=== PATIENT | female | born 1955 | race Caucasian/White ===

== ENCOUNTER → 2019-08-23 | Outpatient (CLI) | payer MEDICARE, OTHER ==
[~2019-08-23] MED LIST: ALBU2.5V5; ALBU90OI; ATOR80; Aspirin EC81 MG PO
[2019-08-25 18:06] LABS: HPV 16 Positive (Negative); HPV 18 Negative (Negative); HPV OTHER HR TYPES Negative (Negative)
== END | disposition home or self-care (01) ==
LOC: LAB 18:09 → LAB SHORT 18:09
PROVIDERS: Nurse Practitioner Family
DX: Z01.419 Encounter for gynecological examination (general) (routine) without abnormal findings (principal)
CPT/HCPCS: 87624; 87625; G0145

== ENCOUNTER → 2019-10-03 | Outpatient (CLI) | payer MEDICARE, OTHER | END | disposition home or self-care (01) | LOC: PLD 08:07 → LAB SHORT 08:07 | DX: R87.810 Cervical high risk human papillomavirus (HPV) DNA test positive (principal); R87.613 High grade squamous intraepithelial lesion on cytologic smear of cervix (HGSIL) | CPT/HCPCS: 88305 ==

== ENCOUNTER → 2019-10-31 | Outpatient (CLI) | payer MEDICARE, OTHER | END | disposition home or self-care (01) | LOC: LAB SHORT 08:03 → PLD 08:03 | DX: D06.0 Carcinoma in situ of endocervix (principal); D06.1 Carcinoma in situ of exocervix | CPT/HCPCS: 88307 ==

== ENCOUNTER 2021-12-20 03:07 | Inpatient (IN) | payer MEDICARE, OTHER ==
[~2021-12-20] VITALS: Ht 154.9 cm; Wt 79.5 kg
[~2021-12-20 03:07] MED LIST changes: -ATOR80; +ATOR80 PO
[2021-12-20 03:31] LABS: BASOPHILS ABSOLUTE AUTO 0.05 K/mm3 (0.00-0.23); BASOPHILS PERCENT AUTO 1 % (0-2); EOSINOPHILS ABSOLUTE AUTO 0.53 K/mm3 (0.00-0.68); EOSINOPHILS PERCENT AUTO 7 % (0-6); Hematocrit 46.4 % (33.0-51.0); Hemoglobin 14.6 g/dL (11.5-16.0); IMMATURE GRAN ABSOLUTE AUTO 0.03 K/mm3 (0.00-0.10); IMMATURE GRAN PERCENT AUTO 0 % (0-1); LYMPHOCYTES ABSOLUTE AUTO 2.75 K/mm3 (0.84-5.20); LYMPHOCYTES PERCENT AUTO 34 % (21-46); MONOCYTES ABSOLUTE AUTO 0.41 K/mm3 (0.16-1.47); MONOCYTES PERCENT AUTO 5 % (4-13); Mean Corpuscular HGB 27.7 pg (26.0-34.0); Mean Corpuscular HGB Conc 31.5 g/dL (31.5-36.5); Mean Corpuscular Volume 88 fL (80-100); Mean Platelet Volume 10.9 fL (9.1-12.4); NEUTROPHILS ABSOLUTE AUTO 4.41 K/mm3 (1.96-9.15); NEUTROPHILS PERCENT AUTO 54 % (41-73); Platelet Count 234 K/mm3 (150-400); RDW Coefficient Variation 14.6 % (11.7-14.2); RDW Standard Deviation 46.8 fL (35.1-46.3); Red Blood Cell Count 5.27 M/mm3 (3.80-5.20); White Blood Cell Count 8.18 K/mm3 (4.00-11.30)
[2021-12-20 03:48] LABS: Albumin, Blood 3.5 g/dL (3.4-5.0); Bilirubin, Total 0.2 mg/dL (0.1-1.0); Bun/Creatinine Ratio 21.2 (12.0-20.0); Creatinine, Blood 0.94 mg/dL (0.40-1.00); Globulin, Blood 3.4 g/dL (2.2-4.0); Potassium, Blood 4.4 mmol/L (3.5-5.5); Total Protein, Blood 6.9 g/dL (6.4-8.2)
[2021-12-20 04:54] LABS: Influenza A, PCR NEGATIVE (NEGATIVE); Influenza B, PCR NEGATIVE (NEGATIVE); Resp Syncytial Virus, PCR NEGATIVE (NEGATIVE)
[2021-12-20 04:55] LABS: SARS-Cov-2 (COVID-19) PCR, MMC POSITIVE (NEGATIVE)
[2021-12-20] MEDS ORDERED: Ventolin/Prove6.7 GM INH (06:06)
[2021-12-20] MEDS ORDERED: VITAMIN D31000 UNI1 PO (07:40)
[2021-12-20] MEDS ORDERED: Crestor40 MG (07:41)
[2021-12-20 12:11] LABS: CPK Creatine Kinase 175 U/L (26-193)
--- NOTE | 2021-12-20 17:22 | NUR ---
SHIFT SUMMARY PATIENT ADMITTED FROM ER THIS AM. COPD EXACERBATION, POSITIVE FOR COVID, AND ELEVATED TROPONINS. A&OX4. PATIENT ON 3L O2 VIA NC. ATTEMPTED TO AMBULATE TO RESTROOM AND BECAME VERY SOB. PATIENT TOLERATING SBA TO BSC. RECEIVING BREATHING TX FROM RT. ON TELE RUNNING SINUS 95. MEDICATED FOR COUGH PER NOV. WILL CONTINUE TO MONITOR.
[2021-12-20 21:02] LABS: Creatine Kinase MB 21.6 ng/mL (0.0-3.6); Creatine Kinase MB Index 6.5 (0.0-4.0)
--- NOTE | 2021-12-20 23:09 | NUR ---
PHYSICIAN COMMUNICATION CONTACTED CUSTOMER SUPPORT TECHNICIAN PHYSICIAN TO NOTIFY HER THAT THE PATIENT WAS EXPERIENCING 7/10 SUBSTERNAL CHEST PAIN RADIATING TO BACK, INCREASED SHORTNESS OF BREATH NOT HELPED WITH BREATHING TREATMENTS, NAUSEA, AND SWEATING. REMINDED PHYSICIAN OF MOST RECENT TROPONIN LEVEL. DR RIGGS SAID SHE WOULD PUT IN ORDERS FOR EKG, MEDICATION, AND TRANFER TO ANOTHER UNIT.
[2021-12-20 23:49] LABS: International Normalized Ratio 1.11; Prothrombin Time Results 11.6 Sec (9.7-11.5)
--- NOTE | 2021-12-21 01:09 | NUR ---
ASSUMED PT CARE FROM MORIAH HERNANDEZ ON MEDICAL CARE FLOOR. PT TRANSFERED TO UNIT AT 0025 VIA BED. ON 6LPM VIA NC. STATES CHEST PAIN IS 1 AND BACK PAIN IS 2 AT THIS TIME, NO INCREASED SOB LIKE SHE WAS HAVING PREVIOUSLY. ABLE TO WEAN NC TO 3LPM WITH O2 SATS AT 95%. PT'S TELE READS HR IN SINUS TACH IN LOW 100'S. PT HAS INTERMITENT COUGHING FITS REPORTED FROM MORIAH HERNANDEZ. TOLERATES NEW IV BEING PLACED IN LEFT FORARM. HEPRIN GTT RUNNING ORDERED, DOUBLED CHECKED WHEN PT TRANSFERED. DENIES NEEDS AT THIS TIME. ORIENTED TO NEW ROOM AND CALL LIGHT. OVERBED TABLE IN REACH.
--- NOTE | 2021-12-21 03:16 | NUR ---
PT HAS HAD NO COMPLAINTS OF CHEST PAIN OR SOB SINCE TRANSFER FROM [facility]. HR REMAINS SINUS RHYTHM AT THIS TIME. PLETH AT 100% ON 3LPM. RESTING IN BED WITH EYES CLOSED, APPEARS TO BE SLEEPING.
--- NOTE | 2021-12-21 04:30 | NUR ---
PT COMPLAINING OF CHEST PAIN 6/10 UNDER LEFT BREAST, PT ABLE TO POINT DIRECTLY TO SITE. VITAL SIGNS WNL. PT DOES NOT APPEAR IN DISTRESS. NITRO X 1 GIVEN AND MORPHINE 1 MG. AFTER 5 MINUTES PT STATES PAIN IS ALMOST GONE. RESPIRATORY THERAPY CALLED FOR NEB TREATMENT DUE TO PT COMPLAING OF MILD SOB. VITAL SIGNS REMAIN WNL. WILL MONITOR. SAFETY MEASURES IN PLACE.
--- NOTE | 2021-12-21 05:55 | NUR ---
PT NOW RESTING IN BED, APPEARS COMFORTABLE. NO FURTHER COMPLAINTS OF CHEST PAIN AT THIS TIME. CALL LIGHT IN REACH.
[2021-12-21 06:24] LABS: BASOPHILS ABSOLUTE AUTO 0.02 K/mm3 (0.00-0.23); BASOPHILS PERCENT AUTO 0 % (0-2); EOSINOPHILS PERCENT AUTO 0 % (0-6); Hematocrit 46.6 % (33.0-51.0); Hemoglobin 14.6 g/dL (11.5-16.0); IMMATURE GRAN ABSOLUTE AUTO 0.06 K/mm3 (0.00-0.10); IMMATURE GRAN PERCENT AUTO 1 % (0-1); LYMPHOCYTES PERCENT AUTO 6 % (21-46); MONOCYTES ABSOLUTE AUTO 0.37 K/mm3 (0.16-1.47); MONOCYTES PERCENT AUTO 3 % (4-13); Mean Corpuscular HGB 27.6 pg (26.0-34.0); Mean Corpuscular HGB Conc 31.3 g/dL (31.5-36.5); Mean Corpuscular Volume 88 fL (80-100); NEUTROPHILS ABSOLUTE AUTO 11.57 K/mm3 (1.96-9.15); NEUTROPHILS PERCENT AUTO 91 % (41-73); Platelet Count 235 K/mm3 (150-400); RDW Coefficient Variation 14.9 % (11.7-14.2); RDW Standard Deviation 47.8 fL (35.1-46.3); Red Blood Cell Count 5.29 M/mm3 (3.80-5.20); White Blood Cell Count 12.72 K/mm3 (4.00-11.30)
[2021-12-21 06:48] LABS: Alanine Aminotransfer (ALT/SGP 32 U/L (12-78); Albumin, Blood 3.5 g/dL (3.4-5.0); Alk Phos 80 U/L (50-136); Anion Gap 4 mmol/L (6-16); Aspartate Aminotrans (AST/SGOT 38 U/L (12-37); Bilirubin, Total 0.3 mg/dL (0.1-1.0); Blood Urea Nitrogen 26 mg/dL (8-24); Bun/Creatinine Ratio 28.2 (12.0-20.0); CO2, Blood 32 mmol/L (21-32); Calcium, Blood 9.2 mg/dL (8.5-10.1); Chloride, Blood 106 mmol/L (98-108); Creatinine, Blood 0.92 mg/dL (0.40-1.00); Globulin, Blood 3.5 g/dL (2.2-4.0); Glomerular Filtration Rate >60 (60-); Glucose, Blood 184 mg/dL (70-99); Potassium, Blood 5.4 mmol/L (3.5-5.5); Sodium, Blood 142 mmol/L (136-145)
--- NOTE | 2021-12-21 10:22 | NUR ---
UPDATE PT CALLED TO REPORT CHEST PAIN, 8/10 MID STERNAL, RADIATING TO LEFT SHOULDER. PT ALSO REPORTED SHORTNESS OF BREATH. 1 DOSE OF SUBLINGUAL NITRO ADMINISTERED, THIS RESOLVED THE CHEST PAIN AND IMPROVED SHORTNESS OF BREATH. BP 99/74, P70, SPO2 97%, RR 22. PT REPORTED MILD LIGHTHEADEDNESS/DIZZINESS AFTER NITRO TREATMENT. CURRENTLY ON 3L NC, NO CHANGES MADE.
--- NOTE | 2021-12-21 15:28 | NUR ---
UPDATE PT HAD AN EPISODE OF CHEST PAIN, 8/10 RADIATING TO LEFT AND RIGHT SHOULDER. PT WAS EXPERIENCING SHORTNESS OF BREATH, SPO2 96% AT 3L NC. 2 MG MORPHINE IV ADMINISTERED AND RESOLVED PAIN TO 4/10 AND IMPROVED SHORTNESS OF BREATH.
--- NOTE | 2021-12-21 17:34 | NUR ---
SHIFT SUMMARY PT HAS BEEN RESTING IN BED. PT HAS HAD MULTIPLE INSTANCES OF CHEST PAIN (SEE PREVIOUS NOTES). PT IS CURRENTLY SITTING UP IN BED AND DENIES CURRENT CHEST PAIN. PT'S SPOUSE HAS EXPRESSED CONCERN TO THIS RN OVER TREATMENT REGIMEN. CONCERNING REMDESIVIR, SPOUSE HAS STATED "THAT IS THE WORST CHEMICAL YOU CAN POSSIBLY PUT IN HER BODY." PT DID NOT COMMENT DURING THIS CONVERSATION. VITAL SIGNS HAVE BEEN STABLE THROUGHOUT THE SHIFT, T 97.2-97.9, P 71-77, RR 18-20, BP 99/74-108/60, SPO2 97-99%. OTHER THAN THE AFOREMENTIONED CHEST PAIN, THERE HAVE BEEN NO CHANGES IN PT CONDITION.
--- NOTE | 2021-12-21 22:11 | NUR ---
PT IS A&OX4. DENIES ANY SOB OR CHEST PAIN UP UNTIL THIS TIME IN MY SHIFT. HEPRIN GTT INCREASED PER ORDERS FROM PHARMACY. PT HR REMAINS IN SINUS RHYTHM IN 70'S. PLETH READINGS IN HIGH 90'S ON 2 LPM VIA NC. PT'S HUBAND VISITING, REQUESTING PT TO BE DISCONTINUED FROM REMDEMSIVIR. EDUCATED PT AND ON TREATMENT AND RIGHT TO REFUSE. NAM RN ON DAY SHIFT REPORTS DOING SAME. WILL DISCUSS WITH DOCTOR IF ROUNDING TONIGHT. MEDICATION NOT SCHEDULED TO BE GIVEN OVERNIGHT.
[2021-12-22 03:08] LABS: BASOPHILS ABSOLUTE AUTO 0.02 K/mm3 (0.00-0.23); BASOPHILS PERCENT AUTO 0 % (0-2); EOSINOPHILS PERCENT AUTO 0 % (0-6); Hematocrit 43.6 % (33.0-51.0); IMMATURE GRAN ABSOLUTE AUTO 0.09 K/mm3 (0.00-0.10); IMMATURE GRAN PERCENT AUTO 1 % (0-1); LYMPHOCYTES ABSOLUTE AUTO 0.76 K/mm3 (0.84-5.20); LYMPHOCYTES PERCENT AUTO 5 % (21-46); MONOCYTES ABSOLUTE AUTO 0.43 K/mm3 (0.16-1.47); MONOCYTES PERCENT AUTO 3 % (4-13); Mean Corpuscular HGB 27.9 pg (26.0-34.0); Mean Corpuscular HGB Conc 32.1 g/dL (31.5-36.5); Mean Corpuscular Volume 87 fL (80-100); Mean Platelet Volume 10.9 fL (9.1-12.4); NEUTROPHILS ABSOLUTE AUTO 13.33 K/mm3 (1.96-9.15); NEUTROPHILS PERCENT AUTO 91 % (41-73); Platelet Count 212 K/mm3 (150-400); RDW Coefficient Variation 14.7 % (11.7-14.2); RDW Standard Deviation 46.9 fL (35.1-46.3); Red Blood Cell Count 5.01 M/mm3 (3.80-5.20); White Blood Cell Count 14.63 K/mm3 (4.00-11.30)
[2021-12-22 03:23] LABS: Bun/Creatinine Ratio 37.9 (12.0-20.0); Creatinine, Blood 0.98 mg/dL (0.40-1.00); Potassium, Blood 4.3 mmol/L (3.5-5.5)
--- NOTE | 2021-12-22 04:29 | NUR ---
PT COMPLAINING OF CHEST PAIN 5/10 THAT IS ACHY, TRAVELS TO BACK AND UP NECK. MEDICATED WITH NITRO X 1. PAIN RESOLVED. WILL CONTINUE TO MONITOR. CALL LIGHT IN REACH.
--- NOTE | 2021-12-22 17:33 | NUR ---
SHIFT SUMMARY PT HAS BEEN RESTING IN BED. PT GOT UP TO BEDSIDE COMMODE BY STAND-BY ASSIST. PT HAS BEEN ABLE TO REPOSITION SELF FREQUENTLY AND WITHOUT ASSISTANCE. PT HAS HAD ONE EPISODE OF CHEST PAIN THAT WAS RELEIVED WITH A SINGE DOSE OF NITRO. PROVIDER WAS NOTIFIED AND NEW ORDERS WERE GIVEN. PT HAS C/O MILD DIZZINESS WITH NITRO PASTE. PT HAS HAD MANY QUESTIONS ABOUT CURRENT ILLNESS AND TREATMENT. VSS, NO ACUTE CHANGES IN PT CONDITION.
--- NOTE | 2021-12-23 00:07 | NUR ---
~2350 Pt with severe CP, relieved by one nitro/ paste, and 2mg IV morphine, VSS, will continue to monitor MARY Patel
--- NOTE | 2021-12-23 05:23 | NUR ---
End of shift summary Overnight without issues, VSS, 1.5L NC, coughing spells improving, one episode of CP that went away with nitro/ morphine, NPO since 0000, hep gtt remains unchanged at 19u/kg/hr, will monitor
--- NOTE | 2021-12-23 17:55 | NUR ---
SHIFT SUMMARY; ASSUMED CARE AT 0700. A/A/OX4, DENIES CHEST PAIN DURING SHIFT. 0.5INCH NITRO PASTE IN PLACE. HEPARIN INFUSING AT 19UNITS/KG. ANGIO TODAY WITH RIGHT RADIAL SITE. TR BAND PROTOCOL FOLLOWED. BAND REMOVED AT 1700, HEPARIN RESTARTED AT 19UNITS/KG. TEGADERM IN PLACE, NO BLEEDING, SWELLING OR HEMATOMA NOTED. VSS, FAMILY AT BEDSIDE, UPDATED ON PENDING TRANSFER TO [facility]. REPORT GIVEN TO MARY KAY. AWAITING TRANSPORT.
== END 2021-12-23 19:10 | disposition short-term general hospital (02) | DRG 177 ==
LOC: ER 03:07 → MEDS 05:41 → PCU 12-21 00:20
PROVIDERS: Emergency Medicine; Internal Medicine; ADMIT Internal Medicine
PROC: 8E0ZXY6 Isolation (ICD-10-PCS; principal; 2021-12-20)
PROC: 3E0333Z Introduction of Anti-inflammatory into Peripheral Vein, Percutaneous Approach (ICD-10-PCS; 2021-12-20)
PROC: XW033E5 Introduction of Remdesivir Anti-infective into Peripheral Vein, Percutaneous Approach, New Technology Group 5 (ICD-10-PCS; 2021-12-20)
PROC: 4A023N7 Measurement of Cardiac Sampling and Pressure, Left Heart, Percutaneous Approach (ICD-10-PCS; 2021-12-23)
PROC: B2111ZZ Fluoroscopy of Multiple Coronary Arteries using Low Osmolar Contrast (ICD-10-PCS; 2021-12-23)
DX: U07.1 COVID-19 (principal); J96.01 Acute respiratory failure with hypoxia; I21.4 Non-ST elevation (NSTEMI) myocardial infarction; J45.901 Unspecified asthma with (acute) exacerbation; I51.81 Takotsubo syndrome; M81.0 Age-related osteoporosis without current pathological fracture; Z28.9 Immunization not carried out for unspecified reason; E78.5 Hyperlipidemia, unspecified; J43.9 Emphysema, unspecified; Z87.891 Personal history of nicotine dependence; Z86.73 Personal history of transient ischemic attack (TIA), and cerebral infarction without residual deficits; Z98.51 Tubal ligation status; Z98.890 Other specified postprocedural states; Z79.82 Long term (current) use of aspirin; Z79.899 Other long term (current) drug therapy
CPT/HCPCS: 0241U; 36415; 71045; 76937; 80048; 80053; 82550; 82553; 83880; 84484; 85025; 85379; 85610; 85730; 93005; 93010; 93454; 94640; 94644; 94664; 94760; 94762; 96374; 96375; 99152; 99153; 99285-25; A9270; C1769; C1887; C1894; C8929; J0248; J0696; J1644; J2250; J2270; J2930; J3010; J7030; J7040; J7050; J7512; Q9957; Q9967

== ENCOUNTER 2022-08-08 17:26 | Inpatient (IN) | payer MEDICARE, OTHER ==
[~2022-08-08] VITALS: Ht 154.9 cm; Wt 51.7 kg
[~2022-08-08 17:26] MED LIST changes: +Crestor40 MG PO; +VITAMIN D31000 UNI1 PO; +Ventolin/Prove6.7 GM INH
[2022-08-08] MEDS ORDERED: ISOSORBIDE MONO60 MG PO (17:33)
[2022-08-08] MEDS ORDERED: NITROGLYCERIN0.4 M3 SL (17:33)
[2022-08-08] MEDS ORDERED: TOPROL XL50 M1 PO (17:33)
[2022-08-08] MEDS ORDERED: TRAM50 PO (17:33)
[2022-08-08 18:32] LABS: BASOPHILS ABSOLUTE AUTO 0.04 K/mm3 (0.00-0.23); BASOPHILS PERCENT AUTO 1 % (0-2); EOSINOPHILS ABSOLUTE AUTO 0.04 K/mm3 (0.00-0.68); EOSINOPHILS PERCENT AUTO 1 % (0-6); Hematocrit 44.1 % (33.0-51.0); IMMATURE GRAN ABSOLUTE AUTO 0.02 K/mm3 (0.00-0.10); IMMATURE GRAN PERCENT AUTO 0 % (0-1); LYMPHOCYTES ABSOLUTE AUTO 0.74 K/mm3 (0.84-5.20); LYMPHOCYTES PERCENT AUTO 10 % (21-46); MONOCYTES ABSOLUTE AUTO 0.65 K/mm3 (0.16-1.47); MONOCYTES PERCENT AUTO 8 % (4-13); Mean Corpuscular HGB 27.9 pg (26.0-34.0); Mean Corpuscular HGB Conc 31.7 g/dL (31.5-36.5); Mean Corpuscular Volume 88 fL (80-100); Mean Platelet Volume 11.2 fL (9.1-12.4); NEUTROPHILS ABSOLUTE AUTO 6.26 K/mm3 (1.96-9.15); NEUTROPHILS PERCENT AUTO 81 % (41-73); Platelet Count 186 K/mm3 (150-400); RDW Coefficient Variation 13.6 % (11.7-14.2); RDW Standard Deviation 43.8 fL (35.1-46.3); Red Blood Cell Count 5.02 M/mm3 (3.80-5.20); White Blood Cell Count 7.75 K/mm3 (4.00-11.30)
[2022-08-08 18:35] LABS: Base Excess Venous 4.7 mmol/L; PCO2 Venous 73.6 mmHg (38-42)
[2022-08-08 18:40] LABS: pH Blood Venous 7.25 (7.34-7.37)
[2022-08-08 18:40] LABS: Albumin, Blood 3.7 g/dL (3.4-5.0); Albumin/Globulin Ratio 1.1 (0.8-1.8); Bilirubin, Total 0.6 mg/dL (0.1-1.0); Bun/Creatinine Ratio 27.3 (12.0-20.0); Creatinine, Blood 0.7 mg/dL (0.40-1.00); Globulin, Blood 3.5 g/dL (2.2-4.0); Potassium, Blood 3.5 mmol/L (3.5-5.5); Total Protein, Blood 7.2 g/dL (6.4-8.2)
[2022-08-08 19:08] LABS: Influenza A, PCR NEGATIVE (NEGATIVE); Influenza B, PCR NEGATIVE (NEGATIVE); SARS-Cov-2 (COVID-19) PCR, MMC NEGATIVE (NEGATIVE)
[2022-08-08 19:15] LABS: Resp Syncytial Virus, PCR POSITIVE (NEGATIVE)
[2022-08-09 04:30] LABS: BASOPHILS ABSOLUTE AUTO 0.01 K/mm3 (0.00-0.23); BASOPHILS PERCENT AUTO 0 % (0-2); EOSINOPHILS PERCENT AUTO 0 % (0-6); Hematocrit 40.9 % (33.0-51.0); Hemoglobin 13.2 g/dL (11.5-16.0); IMMATURE GRAN ABSOLUTE AUTO 0.01 K/mm3 (0.00-0.10); IMMATURE GRAN PERCENT AUTO 0 % (0-1); LYMPHOCYTES ABSOLUTE AUTO 0.27 K/mm3 (0.84-5.20); LYMPHOCYTES PERCENT AUTO 6 % (21-46); MONOCYTES ABSOLUTE AUTO 0.08 K/mm3 (0.16-1.47); MONOCYTES PERCENT AUTO 2 % (4-13); Mean Corpuscular HGB 28.1 pg (26.0-34.0); Mean Corpuscular HGB Conc 32.3 g/dL (31.5-36.5); Mean Corpuscular Volume 87 fL (80-100); Mean Platelet Volume 10.9 fL (9.1-12.4); NEUTROPHILS PERCENT AUTO 92 % (41-73); Platelet Count 164 K/mm3 (150-400); RDW Coefficient Variation 13.5 % (11.7-14.2); RDW Standard Deviation 43.5 fL (35.1-46.3); White Blood Cell Count 4.37 K/mm3 (4.00-11.30)
[2022-08-09 04:56] LABS: Albumin, Blood 3.3 g/dL (3.4-5.0); Albumin/Globulin Ratio 0.9 (0.8-1.8); Bilirubin, Total 0.4 mg/dL (0.1-1.0); Bun/Creatinine Ratio 28.7 (12.0-20.0); Calcium, Blood 8.9 mg/dL (8.5-10.1); Creatinine, Blood 0.63 mg/dL (0.40-1.00); Globulin, Blood 3.6 g/dL (2.2-4.0); Potassium, Blood 3.6 mmol/L (3.5-5.5); Total Protein, Blood 6.9 g/dL (6.4-8.2)
--- NOTE | 2022-08-09 05:38 | NUR ---
SHIFT SUMMARY REPORT FROM [employer] INSTALLER, PATIENT TO ROOM AT 2300, TRANSFERED INDEPENDENT TO BED. PATIENT IS ALERT AND ORIENTED X4. 02 SATS 93% ON 2L VIA NC, WHICH IS BASELINE. INDPENDENT TO TOILET AND NO SOB. SOME SMALL AMOUNT OF SPUTUM PRODUCTION PER PATIENT. HR SR 80. BP SATBLE. CALL LIGHT IN REACH
--- NOTE | 2022-08-09 17:25 | NUR ---
PT SUMMARY: PT HAS BEEN ALERT AND ORIENTED X4 AT BASELINES, COHERENT AND COOPERATIVE, ABLE TO MAKE NEEDS KNOWN. TRANSITIONED TO MEDICAL STATUS WITH NO TELE. VITALS HRR 70-80'S, SBP 130'S, SATS ABOVE 92% ON 2L OF O2 VIA NASAL CANNULA, AFEBRILE. PT C/O CHEST PAIN 4/10 BEFORE THE END OF SHIFT MORE OF LIKE PRESSURE FROM CHEST FOWN TO ABDOMEN WORSENS WHEN TOUCHED, DR BEDOLLA WAS ABLE TO RE-ASSESS PT EKG DONE NO SIGNIFICANT CHANGE, TROPONIN TRENDS LAST WAS 33O NEXT DRAW AT 2100. TRAMADOL WAS GIVEN FOR PAIN RELIEF AND WAS EFFECTIVE. NO OTHER ISSUES ENCOUNTERED PT HAS BEEN AMBULATING TO THE BATHROOM ASSISTED. WILL REPORT TO ONCOMING SHIFT
--- NOTE | 2022-08-09 19:00 | NUR ---
ASSUMED CARE PT A/O X 4. PLEASENT AND COOPERATIVE WITH CARE. DENIES CHEST OR ABD PAIN AT THIS TIME. VSS. PT ON 2L NC. NO TELE. COARSE LUNG SOUNDS W/ DIM BASES. HARSH OCCASIONAL COUGH. PT STANDBY ASSIST TO BR.
--- NOTE | 2022-08-09 21:27 | NUR ---
CHEST PAIN/NITRO PATIENT C/O CP 4/10, DULL AND ACHY, CONSTANT. 2132 BP 133/67 MAP 85 2124 NITROGLYCERIN SL 0.4MG GIVEN TO PATIENT 2129 BP 118/71 MAP 85. CP 4/10, DULL AND ACHY, CONSTANT. 2131 NITROGLYCERIN SL 0.4MG GIVEN TO PATIENT 2134 CP 0/10, BP 128/60 MAP 80
--- NOTE | 2022-08-10 01:31 | NUR ---
CALL TO PT C/O 01/14 CHEST PAIN APPROX 0015. EKG TAKEN AND CALL MADE TO DR CARLTON. PROVIDER NOTIFIED OF NO NEW CHANGES TO EKG, TROPONIN LEVELS, PT REPORTING COUGHING PRIOR TO PAIN, AND PT TAKING TRAMADOL 50MG BID PRN. ORDERS RECEIVED. SEE EMAR.
[2022-08-10 04:24] LABS: BASOPHILS ABSOLUTE AUTO 0.01 K/mm3 (0.00-0.23); BASOPHILS PERCENT AUTO 0 % (0-2); EOSINOPHILS PERCENT AUTO 0 % (0-6); Hematocrit 39.3 % (33.0-51.0); Hemoglobin 12.9 g/dL (11.5-16.0); IMMATURE GRAN ABSOLUTE AUTO 0.05 K/mm3 (0.00-0.10); IMMATURE GRAN PERCENT AUTO 1 % (0-1); LYMPHOCYTES ABSOLUTE AUTO 0.59 K/mm3 (0.84-5.20); LYMPHOCYTES PERCENT AUTO 6 % (21-46); MONOCYTES ABSOLUTE AUTO 0.28 K/mm3 (0.16-1.47); MONOCYTES PERCENT AUTO 3 % (4-13); Mean Corpuscular HGB 28.2 pg (26.0-34.0); Mean Corpuscular HGB Conc 32.8 g/dL (31.5-36.5); Mean Corpuscular Volume 86 fL (80-100); Mean Platelet Volume 11.4 fL (9.1-12.4); NEUTROPHILS ABSOLUTE AUTO 9.62 K/mm3 (1.96-9.15); NEUTROPHILS PERCENT AUTO 91 % (41-73); Platelet Count 226 K/mm3 (150-400); RDW Coefficient Variation 13.7 % (11.7-14.2); RDW Standard Deviation 42.5 fL (35.1-46.3); Red Blood Cell Count 4.57 M/mm3 (3.80-5.20); White Blood Cell Count 10.55 K/mm3 (4.00-11.30)
--- NOTE | 2022-08-10 06:06 | NUR ---
SHIFT SUMMARY NO ACUTE EVENTS T/O NIGHT. SEE PREVIOUS NOTE REGARDING CALL TO MD. PT REPORTS COUGH AND CHEST PAIN ARE IMPROVED AFTER MEDICATIONS. PT AWAKE MOST OF THE NIGHT. PT REQUESTED AND RECEIVED BREATHING TREATMENT X 1. VSS, ON 2L NC W/ SPO2 GREATER THAN 90%. STANDBY ASSIST TO BR. WILL REPORT TO DAYSHIFT RN.
[2022-08-10] MEDS ORDERED: BENZ100A PO (10:10)
[2022-08-10] MEDS ORDERED: PRED20 PO (10:12)
--- NOTE | 2022-08-10 12:55 | NUR ---
PT DISCHARGE TO HOME TODAY PRESCRIPTION SENT TO Desk. PT WAS GIVEN PO DOSE OF PREDNISONE 40MG PRIOR TO DISCHARGE. PT TO FFUP WITH PCP WITHIN A WEEK. ALL DISCHARGE INSTRUCTIONS AND NEW MEDICATIONS DISCLOSED WITH THE PT. ALL BELONGINGS SENT WITH THE PT, SIGNIFICANT OTHER PROVIDED TRANSPORTATION. ALL BELONGINGS SENT WITH THE PT
== END 2022-08-10 12:03 | disposition home or self-care (01) | DRG 189 ==
LOC: ER 17:26 → PCU 17:27
PROVIDERS: Emergency Medicine; Family Medicine; Student in an Organized Health Care Education/Training Program; ADMIT Internal Medicine
PROC: 3E02340 Introduction of Influenza Vaccine into Muscle, Percutaneous Approach (ICD-10-PCS; principal; 2022-08-08)
PROC: 5A09357 Assistance with Respiratory Ventilation, Less than 24 Consecutive Hours, Continuous Positive Airway Pressure (ICD-10-PCS; 2022-08-08)
DX: J96.01 Acute respiratory failure with hypoxia (principal); J44.1 Chronic obstructive pulmonary disease with (acute) exacerbation; J45.901 Unspecified asthma with (acute) exacerbation; E87.29 Other acidosis; I50.20 Unspecified systolic (congestive) heart failure; J44.0 Chronic obstructive pulmonary disease with (acute) lower respiratory infection; J96.02 Acute respiratory failure with hypercapnia; J20.5 Acute bronchitis due to respiratory syncytial virus; R77.8 Other specified abnormalities of plasma proteins; I25.10 Atherosclerotic heart disease of native coronary artery without angina pectoris; F17.210 Nicotine dependence, cigarettes, uncomplicated; E66.9 Obesity, unspecified; Z20.822 Contact with and (suspected) exposure to COVID-19; Z23 Encounter for immunization; Z68.28 Body mass index [BMI] 28.0-28.9, adult; Z79.891 Long term (current) use of opiate analgesic; I25.2 Old myocardial infarction; Z79.899 Other long term (current) drug therapy; Z79.51 Long term (current) use of inhaled steroids; Z79.82 Long term (current) use of aspirin; Z86.73 Personal history of transient ischemic attack (TIA), and cerebral infarction without residual deficits; Z98.890 Other specified postprocedural states; Z98.51 Tubal ligation status
CPT/HCPCS: 0241U; 36415; 71045; 80053; 82803; 83735; 83880; 84484; 85025; 90686; 93005; 93010; 93306; 94640; 94644; 94660; 94664; 94760; 94762; 96365; 96366; 96375; 99285-25; A9270; J0456; J1650; J2930; J3475; J3480; J7050; J7512

== ENCOUNTER 2022-10-26 01:57 | Inpatient (IN) | payer MEDICARE, OTHER ==
[~2022-10-26] VITALS: Ht 154.9 cm; Wt 65.4 kg
[~2022-10-26 01:57] MED LIST changes: +BENZ100A PO; +ISOSORBIDE MONO60 MG PO; +NITROGLYCERIN0.4 M3 SL; +PRED20 PO; +TOPROL XL50 M1 PO; +TRAM50 PO
[2022-10-26 02:19] LABS: BASOPHILS ABSOLUTE AUTO 0.08 K/mm3 (0.00-0.23); BASOPHILS PERCENT AUTO 1 % (0-2); EOSINOPHILS ABSOLUTE AUTO 0.62 K/mm3 (0.00-0.68); EOSINOPHILS PERCENT AUTO 6 % (0-6); Hematocrit 40.2 % (33.0-51.0); IMMATURE GRAN ABSOLUTE AUTO 0.03 K/mm3 (0.00-0.10); IMMATURE GRAN PERCENT AUTO 0 % (0-1); LYMPHOCYTES ABSOLUTE AUTO 2.42 K/mm3 (0.84-5.20); LYMPHOCYTES PERCENT AUTO 23 % (21-46); MONOCYTES ABSOLUTE AUTO 0.47 K/mm3 (0.16-1.47); MONOCYTES PERCENT AUTO 5 % (4-13); Mean Corpuscular HGB 28.6 pg (26.0-34.0); Mean Corpuscular HGB Conc 32.3 g/dL (31.5-36.5); Mean Corpuscular Volume 89 fL (80-100); Mean Platelet Volume 11.5 fL (9.1-12.4); NEUTROPHILS ABSOLUTE AUTO 6.77 K/mm3 (1.96-9.15); NEUTROPHILS PERCENT AUTO 65 % (41-73); Platelet Count 177 K/mm3 (150-400); RDW Coefficient Variation 13.5 % (11.7-14.2); RDW Standard Deviation 43.8 fL (35.1-46.3); Red Blood Cell Count 4.54 M/mm3 (3.80-5.20); White Blood Cell Count 10.39 K/mm3 (4.00-11.30)
[2022-10-26 02:39] LABS: Albumin, Blood 3.7 g/dL (3.4-5.0); Albumin/Globulin Ratio 1.3 (0.8-1.8); Bilirubin, Total 0.3 mg/dL (0.1-1.0); Bun/Creatinine Ratio 31.6 (12.0-20.0); Calcium, Blood 9.7 mg/dL (8.5-10.1); Creatinine, Blood 0.7 mg/dL (0.40-1.00); Globulin, Blood 2.9 g/dL (2.2-4.0); Potassium, Blood 3.6 mmol/L (3.5-5.5); Total Protein, Blood 6.6 g/dL (6.4-8.2)
--- NOTE | 2022-10-26 07:23 | NUR ---
ASSUMED CARE: PT ARRIVED FROM ED ON 2L O2 VIA NC. SINUS TACH AT 104 ON TELE. ALERT AND ORIENTED, AMBULATORY. SBA TO RESTROOM. STEADY ON FEET WITH MINIMAL ASSISTANCE REQUIRED. RESPIRATORY THERAPIST AT BEDSIDE AT THIS TIME.
[2022-10-26] MEDS ORDERED: RANOLAZINE ER500 M2 PO (08:13)
[2022-10-26] MEDS ORDERED: ALBU2.5V5 INH (08:14)
[2022-10-26 08:34] LABS: BASOPHILS ABSOLUTE AUTO 0.02 K/mm3 (0.00-0.23); BASOPHILS PERCENT AUTO 0 % (0-2); EOSINOPHILS ABSOLUTE AUTO 0.01 K/mm3 (0.00-0.68); EOSINOPHILS PERCENT AUTO 0 % (0-6); Hematocrit 38.4 % (33.0-51.0); Hemoglobin 12.4 g/dL (11.5-16.0); IMMATURE GRAN ABSOLUTE AUTO 0.02 K/mm3 (0.00-0.10); IMMATURE GRAN PERCENT AUTO 0 % (0-1); LYMPHOCYTES ABSOLUTE AUTO 0.36 K/mm3 (0.84-5.20); LYMPHOCYTES PERCENT AUTO 6 % (21-46); MONOCYTES PERCENT AUTO 2 % (4-13); Mean Corpuscular HGB 28.1 pg (26.0-34.0); Mean Corpuscular HGB Conc 32.3 g/dL (31.5-36.5); Mean Corpuscular Volume 87 fL (80-100); NEUTROPHILS ABSOLUTE AUTO 5.77 K/mm3 (1.96-9.15); NEUTROPHILS PERCENT AUTO 92 % (41-73); Platelet Count 177 K/mm3 (150-400); RDW Coefficient Variation 13.6 % (11.7-14.2); RDW Standard Deviation 42.9 fL (35.1-46.3); Red Blood Cell Count 4.41 M/mm3 (3.80-5.20); White Blood Cell Count 6.28 K/mm3 (4.00-11.30)
[2022-10-26 08:52] LABS: Albumin, Blood 3.7 g/dL (3.4-5.0); Albumin/Globulin Ratio 1.3 (0.8-1.8); Bilirubin, Total 0.2 mg/dL (0.1-1.0); Bun/Creatinine Ratio 42.2 (12.0-20.0); Calcium, Blood 9.9 mg/dL (8.5-10.1); Creatinine, Blood 0.57 mg/dL (0.40-1.00); Globulin, Blood 2.9 g/dL (2.2-4.0); Potassium, Blood 3.5 mmol/L (3.5-5.5); Total Protein, Blood 6.6 g/dL (6.4-8.2)
--- NOTE | 2022-10-26 09:14 | NUR ---
PT GOT OUT OF SHOWER AND CALLED STAFF TO ROOM. STATED SHE WAS FEELING SOB. CALL TO RT WHO STATES THEY WILL BE HERE IN A FEW MINUTES WITH A TREATMENT. INCREASED O2 TO 4L. PT SITTING AT 90 DEGREES IN BED, PRACTICING PURSED LIP BREATHING. STATES SHE FEELS IMPROVED.
--- NOTE | 2022-10-26 18:05 | NUR ---
PT CALLED STAFF TO BEDSIDE REGARDING CHEST PAIN. SHE STATED ITS A 5/ AND "IT FEELS LIKE IT DOES WHEN I HAVE TO TAKE NITRO AT HOME." O2 INCREASED TO 4L. EKG TAKEN. CALL TO HOSPITALIST WHO ORDERED NITRO. PT STATES SHE IS STARTING TO FEEL RELIEF.
--- NOTE | 2022-10-26 18:56 | NUR ---
RECHECK ON PT WHO STATES CHEST PAIN IS 0/10. 2L O2 VIA NC. SINUS TACH AT 110 ON TELE. NO ACUTE NEEDS OR CONCERNS.
--- NOTE | 2022-10-26 23:14 | NUR ---
PT C/O CHEST PAIN 02/14, VSS, NO CHANGES ON TELE, NTG SL GIVEN, WILL CONTINUE TO MONITOR
--- NOTE | 2022-10-26 23:27 | NUR ---
RECHECK CP 09/16, PT DOES NOT WANT ANOTHER NTG AND VSS
--- NOTE | 2022-10-27 05:50 | NUR ---
END OF SHIFT SUMMARY ONE EPISODE OF CP OVERNIGHT RELIEVED BY NTG, OTHERWISE PT INDEPENDENT IN ROOM, RESTING IN BED, VSS
[2022-10-27 07:19] LABS: BASOPHILS ABSOLUTE AUTO 0.02 K/mm3 (0.00-0.23); BASOPHILS PERCENT AUTO 0 % (0-2); EOSINOPHILS PERCENT AUTO 0 % (0-6); Hematocrit 39.4 % (33.0-51.0); Hemoglobin 13.1 g/dL (11.5-16.0); IMMATURE GRAN ABSOLUTE AUTO 0.04 K/mm3 (0.00-0.10); IMMATURE GRAN PERCENT AUTO 0 % (0-1); LYMPHOCYTES ABSOLUTE AUTO 0.52 K/mm3 (0.84-5.20); LYMPHOCYTES PERCENT AUTO 4 % (21-46); MONOCYTES ABSOLUTE AUTO 0.32 K/mm3 (0.16-1.47); MONOCYTES PERCENT AUTO 2 % (4-13); Mean Corpuscular HGB 28.6 pg (26.0-34.0); Mean Corpuscular HGB Conc 33.2 g/dL (31.5-36.5); Mean Corpuscular Volume 86 fL (80-100); Mean Platelet Volume 11.6 fL (9.1-12.4); NEUTROPHILS ABSOLUTE AUTO 12.52 K/mm3 (1.96-9.15); NEUTROPHILS PERCENT AUTO 93 % (41-73); Platelet Count 189 K/mm3 (150-400); RDW Coefficient Variation 13.8 % (11.7-14.2); RDW Standard Deviation 43.1 fL (35.1-46.3); Red Blood Cell Count 4.58 M/mm3 (3.80-5.20); White Blood Cell Count 13.42 K/mm3 (4.00-11.30)
[2022-10-27 07:38] LABS: Calcium, Blood 9.6 mg/dL (8.5-10.1); Creatinine, Blood 0.61 mg/dL (0.40-1.00); Potassium, Blood 3.9 mmol/L (3.5-5.5)
[2022-10-27 09:34] LABS: Adenovirus Not Detected (NOT DETECT); Bordetella pertussis Not Detected (NOT DETECT); Chlamydophila pneumoniae Not Detected (NOT DETECT); Coronavirus 229E Not Detected (NOT DETECT); Coronavirus HKU1 Not Detected (NOT DETECT); Coronavirus NL63 Not Detected (NOT DETECT); Coronavirus OC43 Not Detected (NOT DETECT); Human Metapneumovirus Not Detected (NOT DETECT); Human Rhinovirus/Enterovirus Not Detected (NOT DETECT); Influenza A/2009-H1 Not Detected (NOT DETECT); Influenza A/H1 Not Detected (NOT DETECT); Influenza A/H3 Not Detected (NOT DETECT); Influenza B Not Detected (NOT DETECT); Mycoplasma pneumoniae Not Detected (NOT DETECT); Parainfluenza Virus 1 Not Detected (NOT DETECT); Parainfluenza Virus 2 Not Detected (NOT DETECT); Parainfluenza Virus 3 Not Detected (NOT DETECT); Parainfluenza Virus 4 Not Detected (NOT DETECT); Respiratory Syncytial Virus Not Detected (NOT DETECT); SARS-Cov-2 (COVID-19), BioFire Not Detected (NOT DETECT)
[2022-10-27 09:51] LABS: Anti-Xa UFH, PHA Monitoring 0.18 IU/mL; International Normalized Ratio 0.99; Prothrombin Time Results 10.4 Sec (9.7-11.5)
--- NOTE | 2022-10-27 11:45 | NUR ---
Am note Assumed care of patient at approx 0700. Pt alert oriented x4; calm and cooperative with care. Pt reporting 2/10 chest pain, states this is her baseline, and 5/10 bacxk pain, requesting tramadol, notified Dr Gong. Critical trop called to Dr Gong this am, new order for ekg. to bedside to review, tele ekg changes noted. Cardiology consulted. Dr Nuñez to bedside, plans for angio this afternoon, npo. Pt reporting increased chest pain, 5/10, nitro provided, notified Dr Nuñez, on reassessment pt denying chest pain, new order for nitro paste, administered. Tele showing sinus/sinus tach, bp soft with inital nitro sublingual, however stableized. Pt up in room with sba. Pt denies nausea, dizziness and numb/tingling. Pt states sob at baseline, spo2 >90% on 2l o2 via nc. Pt abd soft, nontender. Other vss. No other acute changes noted. Will continue to monitor.
--- NOTE | 2022-10-27 16:53 | NUR ---
Shift Summary Nitro paste applied per orders, no addition chest pain/pressure noted t/o shift. Pt started on home medication tramadol, medicated per emar. No other acute changes noted. Pt npo at midnight, pt to angio tomorrow. Echo and ekg completed during shift. Vss. No other acute changes noted. Will continue to monitor.
[2022-10-28 03:44] LABS: BASOPHILS ABSOLUTE AUTO 0.01 K/mm3 (0.00-0.23); BASOPHILS PERCENT AUTO 0 % (0-2); EOSINOPHILS PERCENT AUTO 0 % (0-6); Hematocrit 34.1 % (33.0-51.0); Hemoglobin 11.2 g/dL (11.5-16.0); IMMATURE GRAN ABSOLUTE AUTO 0.05 K/mm3 (0.00-0.10); IMMATURE GRAN PERCENT AUTO 0 % (0-1); LYMPHOCYTES ABSOLUTE AUTO 0.64 K/mm3 (0.84-5.20); LYMPHOCYTES PERCENT AUTO 5 % (21-46); MONOCYTES ABSOLUTE AUTO 0.27 K/mm3 (0.16-1.47); MONOCYTES PERCENT AUTO 2 % (4-13); Mean Corpuscular HGB 28.2 pg (26.0-34.0); Mean Corpuscular HGB Conc 32.8 g/dL (31.5-36.5); Mean Corpuscular Volume 86 fL (80-100); Mean Platelet Volume 11.9 fL (9.1-12.4); NEUTROPHILS ABSOLUTE AUTO 10.83 K/mm3 (1.96-9.15); NEUTROPHILS PERCENT AUTO 92 % (41-73); Platelet Count 177 K/mm3 (150-400); RDW Coefficient Variation 13.8 % (11.7-14.2); RDW Standard Deviation 43.5 fL (35.1-46.3); Red Blood Cell Count 3.97 M/mm3 (3.80-5.20)
[2022-10-28 04:09] LABS: Bun/Creatinine Ratio 53.8 (12.0-20.0); Calcium, Blood 8.6 mg/dL (8.5-10.1); Creatinine, Blood 0.71 mg/dL (0.40-1.00); Potassium, Blood 4.2 mmol/L (3.5-5.5)
--- NOTE | 2022-10-28 06:44 | NUR ---
SHIFT SUMMARY ASSUMED CARE OF PT AT 1900. PT IS A/OX4. HEART SOUNDS REGULAR. LUNG SOUNDS HAVE WHEEZES. PT WORE BASLINE O2 AT 2L NC.PT WAS A SBA TO BATHROOM. PT HAD NO NEW COMPLAINTS. PT NPO SINCE MIDNIGHT. DR BELTRE TO PT ROOM THIS AM.
--- NOTE | 2022-10-28 11:14 | NUR ---
ASSUMED CARE OF PT AT 0700 TODAY. PT C/O CHEST PAIN 8/10 MID SUB STERNAL, NON-RADIATING. CHEST PAIN RELEIVED TO 0/10 WITH TWO DOSES OF SL NITRO. SEE DOCUMENTED VS. PT HAS NO OTHER COMPLAINTS AT THIS TIME, CALL LIGHT IN REACH. WILL CONTINUE TO MONITOR.
--- NOTE | 2022-10-28 15:59 | NUR ---
DR LEWIS CONTACTED R/T RESTARTING HEPARIN. ORDERS TO CONTINUE TO HOLD HEPARIN FOR NOW, DR LEWIS STATES HE WILL COME SPEAK WITH PT AND SO, THEN RE-EVALUATE HEPARIN GTT AT THAT TIME. TR BAND IN PLACE, REMOVING AIR PER PROTOCOL. CALL LIGHT IN REACH, WILL CONTINUE TO MONITOR.
--- NOTE | 2022-10-28 18:37 | NUR ---
TR BAND FULLY RECOVERED AND REPORT CALLED TO MARY ISSA AT [facility] IN [place]. PT LEFT [facility] @ 1848 VIA AMBULANCE. PT'S AT BEDSIDE AND UPDATED WITH PT'S ROOM AND PHONE NUMBER. ALL BELONGINGS SENT WITH PT.
== END 2022-10-28 18:46 | disposition short-term general hospital (02) | DRG 280 ==
LOC: ER 01:57 → PCU 04:07
PROVIDERS: Emergency Medicine; Family Medicine; Student in an Organized Health Care Education/Training Program; ADMIT Student in an Organized Health Care Education/Training Program
PROC: 5A09357 Assistance with Respiratory Ventilation, Less than 24 Consecutive Hours, Continuous Positive Airway Pressure (ICD-10-PCS; 2022-10-26)
PROC: 4A023N7 Measurement of Cardiac Sampling and Pressure, Left Heart, Percutaneous Approach (ICD-10-PCS; principal; 2022-10-28)
PROC: B211YZZ Fluoroscopy of Multiple Coronary Arteries using Other Contrast (ICD-10-PCS; 2022-10-28)
PROC: B240ZZ3 Ultrasonography of Single Coronary Artery, Intravascular (ICD-10-PCS; 2022-10-28)
DX: I21.4 Non-ST elevation (NSTEMI) myocardial infarction (principal); J96.21 Acute and chronic respiratory failure with hypoxia; J96.22 Acute and chronic respiratory failure with hypercapnia; I50.20 Unspecified systolic (congestive) heart failure; F17.213 Nicotine dependence, cigarettes, with withdrawal; J43.9 Emphysema, unspecified; M54.9 Dorsalgia, unspecified; G89.29 Other chronic pain; J45.909 Unspecified asthma, uncomplicated; I25.10 Atherosclerotic heart disease of native coronary artery without angina pectoris; E78.5 Hyperlipidemia, unspecified; I11.0 Hypertensive heart disease with heart failure; I27.20 Pulmonary hypertension, unspecified; Z20.822 Contact with and (suspected) exposure to COVID-19; Z99.81 Dependence on supplemental oxygen; Z86.73 Personal history of transient ischemic attack (TIA), and cerebral infarction without residual deficits; Z79.899 Other long term (current) drug therapy; Z79.51 Long term (current) use of inhaled steroids; Z79.82 Long term (current) use of aspirin; Z79.891 Long term (current) use of opiate analgesic; Z79.52 Long term (current) use of systemic steroids; Z98.51 Tubal ligation status; Z98.890 Other specified postprocedural states; Z79.2 Long term (current) use of antibiotics
CPT/HCPCS: 0202U; 36415; 71045; 76937; 80048; 80053; 84484; 85025; 85520; 85610; 85730; 93005; 93010; 93458; 94640; 94644; 94664; 94760; 94762; 97112; 97162; 99152; 99153; 99285-25; A9270; C1769; C1887; C1894; C8929; J1644; J1650; J2250; J2930; J3010; J7030; J7050; Q9957; Q9967

== ENCOUNTER 2023-01-03 15:42 | Emergency (ER) | payer MEDICARE, OTHER ==
[~2023-01-03] VITALS: Ht 154.9 cm; Wt 62.6 kg
[~2023-01-03 15:42] MED LIST changes: +ALBU2.5V5 INH; +RANOLAZINE ER500 M2 PO
[2023-01-03 16:23] LABS: BASOPHILS ABSOLUTE AUTO 0.07 K/mm3 (0.00-0.23); BASOPHILS PERCENT AUTO 1 % (0-2); EOSINOPHILS ABSOLUTE AUTO 0.51 K/mm3 (0.00-0.68); EOSINOPHILS PERCENT AUTO 10 % (0-6); Hematocrit 37.7 % (33.0-51.0); IMMATURE GRAN PERCENT AUTO 0 % (0-1); LYMPHOCYTES ABSOLUTE AUTO 1.33 K/mm3 (0.84-5.20); LYMPHOCYTES PERCENT AUTO 27 % (21-46); MONOCYTES ABSOLUTE AUTO 0.41 K/mm3 (0.16-1.47); MONOCYTES PERCENT AUTO 8 % (4-13); Mean Corpuscular HGB 27.8 pg (26.0-34.0); Mean Corpuscular HGB Conc 31.8 g/dL (31.5-36.5); Mean Corpuscular Volume 87 fL (80-100); Mean Platelet Volume 10.5 fL (9.1-12.4); NEUTROPHILS ABSOLUTE AUTO 2.62 K/mm3 (1.96-9.15); NEUTROPHILS PERCENT AUTO 53 % (41-73); Platelet Count 213 K/mm3 (150-400); RDW Coefficient Variation 13.3 % (11.7-14.2); Red Blood Cell Count 4.32 M/mm3 (3.80-5.20); White Blood Cell Count 4.94 K/mm3 (4.00-11.30)
[2023-01-03 16:55] LABS: Albumin, Blood 3.6 g/dL (3.4-5.0); Albumin/Globulin Ratio 1.3 (0.8-1.8); Bilirubin, Total 0.3 mg/dL (0.1-1.0); Bun/Creatinine Ratio 29.8 (12.0-20.0); Creatinine, Blood 0.7 mg/dL (0.40-1.00); Globulin, Blood 2.7 g/dL (2.2-4.0); Potassium, Blood 4.5 mmol/L (3.5-5.5); Total Protein, Blood 6.3 g/dL (6.4-8.2)
[2023-01-03 17:14] LABS: Source, Urine Clean Catch
[2023-01-03 17:20] LABS: Appearance, Urine Clear (Clear); Bilirubin, Urine Neg (Neg); Blood, Urine 2+ (Neg); Color, Urine Yellow (P-Yellow); Glucose Qualitative, Urine Neg (Neg); Ketones, Urine Neg (Neg); Leukocyte Esterase, Urine 3+ (Neg); Nitrite, Urine Neg (Neg); Protein, Urine 1+ (Neg); Urobilinogen, Urine NORM (Normal)
[2023-01-03 17:40] LABS: Bacteria Mod /hpf; Squamous Epithelial Cells Few /hpf (Few)
[2023-01-03 19:00] VITALS: BP 117/50
[2023-01-03] MEDS ORDERED: CEPH500 PO (19:17)
[2023-01-03] MEDS ORDERED: OXYC5 PO (19:17)
== END 2023-01-03 19:40 | disposition home or self-care (01) ==
LOC: ER 15:42
PROVIDERS: Student in an Organized Health Care Education/Training Program
DX: N12 Tubulo-interstitial nephritis, not specified as acute or chronic (principal); F17.210 Nicotine dependence, cigarettes, uncomplicated; Z79.899 Other long term (current) drug therapy; Z79.82 Long term (current) use of aspirin
CPT/HCPCS: 74176; 80053; 81001; 83690; 85025; 87086; 96374; 99284-25; A9270; J0696

== ENCOUNTER 2024-05-21 23:50 | Emergency (ER) | payer MEDICARE, OTHER ==
[~2024-05-21] VITALS: Ht 154.9 cm; Wt 63.5 kg
[~2024-05-21 23:50] MED LIST changes: +CEPH500 PO; +OXYC5 PO
[2024-05-22] MEDS ORDERED: MethylPREDNISolone Sod Succ 125 MG Vial IV ONE (00:05)
[2024-05-22] MEDS ORDERED: Ipratropium/Albuterol SulF 2.5-0.5MG/3 ML Amp INH ONE (00:05)
[2024-05-22 00:20] VITALS: BP 130/51
[2024-05-22 00:28] LABS: BASOPHILS ABSOLUTE AUTO 0.09 K/mm3 (0.00-0.23); BASOPHILS PERCENT AUTO 2 % (0-2); EOSINOPHILS ABSOLUTE AUTO 0.58 K/mm3 (0.00-0.68); EOSINOPHILS PERCENT AUTO 13 % (0-6); Hematocrit 37.7 % (33.0-51.0); Hemoglobin 12.4 g/dL (11.5-16.0); IMMATURE GRAN ABSOLUTE AUTO 0.01 K/mm3 (0.00-0.10); IMMATURE GRAN PERCENT AUTO 0 % (0-1); LYMPHOCYTES ABSOLUTE AUTO 1.66 K/mm3 (0.84-5.20); LYMPHOCYTES PERCENT AUTO 36 % (21-46); MONOCYTES ABSOLUTE AUTO 0.38 K/mm3 (0.16-1.47); MONOCYTES PERCENT AUTO 8 % (4-13); Mean Corpuscular HGB 28.4 pg (26.0-34.0); Mean Corpuscular HGB Conc 32.9 g/dL (31.5-36.5); Mean Corpuscular Volume 87 fL (80-100); Mean Platelet Volume 10.8 fL (9.1-12.4); NEUTROPHILS ABSOLUTE AUTO 1.86 K/mm3 (1.96-9.15); NEUTROPHILS PERCENT AUTO 41 % (41-73); Platelet Count 172 K/mm3 (150-400); RDW Coefficient Variation 13.4 % (11.7-14.2); Red Blood Cell Count 4.36 M/mm3 (3.80-5.20); White Blood Cell Count 4.58 K/mm3 (4.00-11.30)
[2024-05-22 00:46] LABS: Bun/Creatinine Ratio 22.7 (12.0-20.0); Calcium, Blood 8.9 mg/dL (8.5-10.1); Creatinine, Blood 0.71 mg/dL (0.40-1.00); Potassium, Blood 3.9 mmol/L (3.5-5.5)
[2024-05-22] MEDS ORDERED: PRED20 PO (01:24)
[2024-05-22] MEDS ORDERED: ACET500 PO (01:24)
== END 2024-05-22 01:39 | disposition home or self-care (01) ==
LOC: ER 23:50
PROVIDERS: Emergency Medicine
DX: J44.1 Chronic obstructive pulmonary disease with (acute) exacerbation (principal); R07.2 Precordial pain; F17.210 Nicotine dependence, cigarettes, uncomplicated; Z86.73 Personal history of transient ischemic attack (TIA), and cerebral infarction without residual deficits; Z79.899 Other long term (current) drug therapy; Z79.82 Long term (current) use of aspirin
CPT/HCPCS: 71045; 80048; 84484; 85025; 85379; 93005; 93010; 94640; 94664; 96374; 99285-25; J2919

== ENCOUNTER 2024-10-13 15:45 | Observation (INO) | payer MEDICARE, OTHER ==
[~2024-10-13] VITALS: Ht 154.9 cm; Wt 58.6 kg
[~2024-10-13 15:45] MED LIST changes: +ACET500 PO; -ALBU2.5V5 INH; +ALBU90OI INH
[2024-10-13] MEDS ORDERED: Nitroglycerin 0.4 MG SUBL SL ONE (16:20)
[2024-10-13 16:25] LABS: BASOPHILS ABSOLUTE AUTO 0.07 K/mm3 (0.00-0.23); BASOPHILS PERCENT AUTO 1 % (0-2); EOSINOPHILS ABSOLUTE AUTO 0.15 K/mm3 (0.00-0.68); EOSINOPHILS PERCENT AUTO 3 % (0-6); Hematocrit 44.9 % (33.0-51.0); IMMATURE GRAN ABSOLUTE AUTO 0.01 K/mm3 (0.00-0.10); IMMATURE GRAN PERCENT AUTO 0 % (0-1); LYMPHOCYTES ABSOLUTE AUTO 0.82 K/mm3 (0.84-5.20); LYMPHOCYTES PERCENT AUTO 16 % (21-46); MONOCYTES ABSOLUTE AUTO 0.33 K/mm3 (0.16-1.47); MONOCYTES PERCENT AUTO 7 % (4-13); Mean Corpuscular HGB 28.4 pg (26.0-34.0); Mean Corpuscular HGB Conc 33.4 g/dL (31.5-36.5); Mean Corpuscular Volume 85 fL (80-100); NEUTROPHILS ABSOLUTE AUTO 3.66 K/mm3 (1.96-9.15); NEUTROPHILS PERCENT AUTO 73 % (41-73); Platelet Count 197 K/mm3 (150-400); RDW Coefficient Variation 13.4 % (11.7-14.2); Red Blood Cell Count 5.29 M/mm3 (3.80-5.20); White Blood Cell Count 5.04 K/mm3 (4.00-11.30)
[2024-10-13 16:48] LABS: Magnesium, Blood 2.6 mg/dL (1.6-2.4)
[2024-10-13 16:49] LABS: Albumin, Blood 3.9 g/dL (3.4-5.0); Albumin/Globulin Ratio 1.1 (0.8-1.8); Bilirubin, Total 0.5 mg/dL (0.1-1.0); Bun/Creatinine Ratio 15.5 (12.0-20.0); Calcium, Blood 8.9 mg/dL (8.5-10.1); Creatinine, Blood 0.65 mg/dL (0.40-1.00); Globulin, Blood 3.5 g/dL (2.2-4.0); Potassium, Blood 4.2 mmol/L (3.5-5.5); Total Protein, Blood 7.4 g/dL (6.4-8.2)
[2024-10-13] MEDS ORDERED: FLU VACC TS2024-25(6MOS UP)/PF 45 MCG/0.5 ML SYRINGE IM SCH (20:40)
[2024-10-13] MEDS ORDERED: Albuterol 2.5 MG/3 ML VIAL INH PRN (20:40)
[2024-10-13] MEDS ORDERED: Ipratropium/Albuterol SulF 2.5-0.5MG/3 ML Amp INH SCH (20:45)
[2024-10-13] MEDS ORDERED: Ondansetron HCl 2 MG / ML 2ML Vial IV PRN (20:45)
[2024-10-13] MEDS ORDERED: Ranolazine 500 MG ER Tablet PO SCH (21:00)
[2024-10-13] MEDS ORDERED: NS 1,000 ML IV SCH (23:30)
[2024-10-13 23:40] VITALS: BP 146/66
[2024-10-13] MEDS ORDERED: LEVSOD25 PO (23:40)
[2024-10-13] MEDS ORDERED: TRAM50 PO (23:42)
[2024-10-14 03:41] VITALS: BP 120/58
--- NOTE | 2024-10-14 05:03 | NUR ---
SHIFT SUMMARY PATIENT HAS BEEN SLEEPING INTERMITTANTLY SINCE BEING ADMITTED TO THE MEDICAL FLOOR. SHE HAS BEEN NPO SINCE MIDNIGHT ORDERED BY THE MD. PATIENT HAS NOT HAD ANY EPISODES OF CHEST PAIN. NS IS INFUSING WITHOUT COMPLICATIONS PATIENT IS ORIENTED X3. SHE HAS HER CALL LIGHT WITHIN REACH. SAFETY PRECAUTIONS ARE BEING MAINTAINED.
[2024-10-14 07:47] VITALS: BP 119/54
[2024-10-14] MEDS ORDERED: Ipratropium/Albuterol SulF 2.5-0.5MG/3 ML Amp INH PRN (08:10)
[2024-10-14 08:59] LABS: BASOPHILS ABSOLUTE AUTO 0.06 K/mm3 (0.00-0.23); BASOPHILS PERCENT AUTO 1 % (0-2); EOSINOPHILS ABSOLUTE AUTO 0.23 K/mm3 (0.00-0.68); EOSINOPHILS PERCENT AUTO 5 % (0-6); Hematocrit 38.9 % (33.0-51.0); Hemoglobin 12.8 g/dL (11.5-16.0); IMMATURE GRAN ABSOLUTE AUTO 0.02 K/mm3 (0.00-0.10); IMMATURE GRAN PERCENT AUTO 0 % (0-1); LYMPHOCYTES ABSOLUTE AUTO 1.56 K/mm3 (0.84-5.20); LYMPHOCYTES PERCENT AUTO 33 % (21-46); MONOCYTES ABSOLUTE AUTO 0.47 K/mm3 (0.16-1.47); MONOCYTES PERCENT AUTO 10 % (4-13); Mean Corpuscular HGB 27.8 pg (26.0-34.0); Mean Corpuscular HGB Conc 32.9 g/dL (31.5-36.5); Mean Corpuscular Volume 85 fL (80-100); Mean Platelet Volume 10.8 fL (9.1-12.4); NEUTROPHILS ABSOLUTE AUTO 2.42 K/mm3 (1.96-9.15); NEUTROPHILS PERCENT AUTO 51 % (41-73); Platelet Count 161 K/mm3 (150-400); RDW Coefficient Variation 13.5 % (11.7-14.2); RDW Standard Deviation 41.6 fL (35.1-46.3); White Blood Cell Count 4.76 K/mm3 (4.00-11.30)
[2024-10-14] MEDS ORDERED: Enoxaparin 40 MG/0.4 ML SYR SC SCH (09:00)
[2024-10-14] MEDS ORDERED: Metoprolol Succinate 50 MG TABCR PO SCH (09:00)
[2024-10-14] MEDS ORDERED: Aspirin 81 MG Chew PO SCH (09:00)
[2024-10-14] MEDS ORDERED: Atorvastatin 40 MG Tab PO SCH (09:00)
[2024-10-14 09:12] LABS: Calcium, Blood 8.2 mg/dL (8.5-10.1); Creatinine, Blood 0.62 mg/dL (0.40-1.00); Magnesium, Blood 2.3 mg/dL (1.6-2.4); Potassium, Blood 3.9 mmol/L (3.5-5.5)
[2024-10-14 12:53] VITALS: BP 135/63
[2024-10-14] MEDS ORDERED: ISODIN10 PO (14:12)
[2024-10-14] MEDS ORDERED: METO50ER PO (14:27)
--- NOTE | 2024-10-14 16:37 | NUR ---
DISCHARGE SUMMARY PATIENT WITH NO ACUTE EVENTS DURING SHIFT. SHE IS UP 1 PERSON SBA TO BATHROOM WITH WALKER WHICH IS HER BASELINE. SHE DENIES ANY CHEST PAIN THROUGHOUT DAY. DR PRADO ASSESSED HER ARM PAIN AND NUMB FINGERS AND FOUND IT UNRELATED TO HER PREVIOUS CHEST PAIN OR HEART CONDITIONS. PATIENT MEDICATION AND EDUCATION PACKETS PRINTED AND SIGNATURE OBTAINED. ALL QUESTIONS ANSWERED. IV REMOVED BY THIS FLOOR COVERINGS SALESPERSON. PATIENT LEFT UNIT AT 1620 VIA TRANSPORT CHAIR WITH BRYNN Weir. SHE IS LEAVING HOSPITAL VIA PRIVATE VEHICLE WITH SON.
== END 2024-10-14 16:19 | disposition home or self-care (01) ==
LOC: ER 15:45 → MEDS 15:46 → ERHOLD 15:46 → MEDS 22:54 → ENPENDDIS 10-14 14:21 → MEDS 10-14 16:19
PROVIDERS: Emergency Medicine; Student in an Organized Health Care Education/Training Program; ADMIT Internal Medicine
DX: I25.118 Atherosclerotic heart disease of native coronary artery with other forms of angina pectoris (principal); I50.20 Unspecified systolic (congestive) heart failure; J45.909 Unspecified asthma, uncomplicated; J44.9 Chronic obstructive pulmonary disease, unspecified; Z99.81 Dependence on supplemental oxygen; Z79.899 Other long term (current) drug therapy
CPT/HCPCS: 36415; 71045; 80048; 80053; 83735; 83880; 84484; 85025; 93005; 93010; 94640; 94664; 94760; 96372; 99285-25; A9270; G0378; J1650; J7030